=== PATIENT | female | born 1960 | race Caucasian/White ===

== ENCOUNTER 2020-03-15 09:17 | Outpatient (CLI) | payer OTHER ==
--- NOTE | 2020-03-15 10:02 | RAD ---
2 VIEW CHEST: Date: 03/15/2020 INDICATION: Chest wall pain. No comparison. FINDINGS: There is linear atelectasis and/or infiltrate seen in the right middle lobe, best appreciated in the lateral view. The lungs are otherwise clear. Heart and mediastinum unremarkable. Osseous structures unremarkable. IMPRESSION: Linear infiltrate and/or atelectasis in the right middle lobe. Follow-up recommended. POS: [facility]
== END 2020-03-15 09:18 | disposition home or self-care (01) ==
LOC: RAD-FRANK 09:17
PROVIDERS: ATTEND Nurse Practitioner Family
DX: R07.89 Other chest pain (principal)
CPT/HCPCS: 71046

== ENCOUNTER 2021-04-23 13:45 | Outpatient (CLI) | payer OTHER | END 2021-04-23 13:46 | disposition home or self-care (01) | LOC: RAD-FRANK 13:45 | PROVIDERS: ATTEND Nurse Practitioner Family | DX: R91.8 Other nonspecific abnormal finding of lung field (principal); J98.4 Other disorders of lung | CPT/HCPCS: 71046 ==

== ENCOUNTER 2022-04-17 22:14 | Emergency (ER) | payer OTHER, BC ==
[2022-04-17] MEDS ORDERED: Bupivacaine 0.5% 10 ML VIAL SC SCH (23:30)
[2022-04-17] MEDS ORDERED: Lidocaine 1% PF 10 ML AMP SC SCH (23:30)
[2022-04-17] MEDS ORDERED: Bupivacaine PF 0.5% 30 ML VIAL SC SCH (23:45)
[2022-04-17] MEDS ORDERED: Lidocaine 1% PF 5 ML VIAL SQ SCH (23:45)
[2022-04-18] MEDS ORDERED: HYDROcodone/Acetaminophen 5/325 mg Tablet ONE (01:35)
== END 2022-04-18 01:29 | disposition home or self-care (01) ==
LOC: ERS 22:14
DX: S52.571A Other intraarticular fracture of lower end of right radius, initial encounter for closed fracture (principal); I10 Essential (primary) hypertension; Z79.899 Other long term (current) drug therapy; W01.0XXA Fall on same level from slipping, tripping and stumbling without subsequent striking against object, initial encounter
CPT/HCPCS: 25605; J2001; J3490; S0020

== ENCOUNTER 2022-04-21 10:31 | Outpatient (CLI) | payer BC ==
[2022-04-21 20:13] LABS: SARS-CoV-2 PCR by NAA Not Detected (NotDetected)
== END 2022-04-21 10:32 | disposition home or self-care (01) ==
LOC: LABBT 10:31
PROVIDERS: ATTEND Orthopaedic Surgery
DX: Z01.818 Encounter for other preprocedural examination (principal); S52.502A Unspecified fracture of the lower end of left radius, initial encounter for closed fracture; Z20.822 Contact with and (suspected) exposure to COVID-19
CPT/HCPCS: 93005; 93010; U0003; U0005

== ENCOUNTER 2022-04-23 10:36 | Day surgery (SDC) | payer OTHER, BC ==
[2022-04-22 11:03] VITALS: BMI 25.0
[2022-04-23] MEDS ORDERED: Midazolam HCl 2 mg/2 ml Vial ONE (11:10)
[2022-04-23] MEDS ORDERED: Fentanyl 100 MCG/2 ML VIAL ONE (11:11)
[2022-04-23] MEDS ORDERED: Lidocaine 1% MPF 2 ML VIAL ONE (11:12)
[2022-04-23] MEDS ORDERED: CEFAZOLIN 2 GM VIAL ONE (11:13)
[2022-04-23] MEDS ORDERED: Sodium Chloride 0.9% 100 ML ONE (11:13)
[2022-04-23] MEDS ORDERED: Bupivacaine 0.25% 10 ML VIAL ONE (11:59)
[2022-04-23] MEDS ORDERED: EPINEPHrine 1 MG/ML AMP ONE (11:59)
[2022-04-23] MEDS ORDERED: fentaNYL Citrate/PF 100 MCG/2 ML SYRINGE ONE (13:01)
== END 2022-04-23 15:53 | disposition home or self-care (01) ==
LOC: SDC 10:36
PROVIDERS: ATTEND Orthopaedic Surgery
PROC: 0PSJ04Z Reposition Left Radius with Internal Fixation Device, Open Approach (ICD-10-PCS; principal; 2022-04-23)
PROC: 3E0T3BZ Introduction of Anesthetic Agent into Peripheral Nerves and Plexi, Percutaneous Approach (ICD-10-PCS; principal; 2022-04-23)
DX: S52.531A Colles' fracture of right radius, initial encounter for closed fracture (principal); I10 Essential (primary) hypertension; Z85.038 Personal history of other malignant neoplasm of large intestine; Z79.899 Other long term (current) drug therapy; Z90.49 Acquired absence of other specified parts of digestive tract; W01.0XXA Fall on same level from slipping, tripping and stumbling without subsequent striking against object, initial encounter
CPT/HCPCS: 76000; C1713; C1776; J0171; J2250; J3010; J3490; S0020

== ENCOUNTER 2023-01-14 09:45 | Outpatient (CLI) | payer BC | END 2023-01-14 09:46 | disposition home or self-care (01) | LOC: RAD-FRANK 09:45 | PROVIDERS: ATTEND Nurse Practitioner Family | DX: R10.13 Epigastric pain (principal) | CPT/HCPCS: 74018 ==